=== PATIENT | female | born 1975 | race Asian ===

== ENCOUNTER 2024-03-26 10:02 | Inpatient (IN) ==
[2024-03-26] MEDS: NS 0.9% 1000 ml BAG 1,000 ML IV ONE (11:55)
[2024-03-26] MEDS: Ondansetron 4 mg VIAL 2 MG/ML 2 ml VIAL IV ONE (12:00)
[2024-03-26] MEDS: Acetaminophen IV 1 GM/100ML 1,000 MG/100 ML BAG IV ONE (12:00)
[2024-03-26 12:50] LABS: ABS Monocytes 0.2 10^3/uL (0.0-0.9); ABS Neutrophils 2.2 10^3/uL (1.5-7.6); ABS Nucleated RBC 0.01 10^3/ul; Eosinophil % 0.4 %; Hematocrit 39.5 % (35-45); Hemoglobin 13.4 g/dL (11.5-14.3); Lymphocyte % 29.1 %; Mean Corpuscular Hemoglobin 31.8 pg (27-33); Mean Corpuscular Hgb Conc 33.8 g/dL (31-36); Mean Corpuscular Volume 93.9 fL (80-97); Mean Platelet Volume 8.9 fL (7.5-11.2); Nucleated Red Blood Cells % 0.2 %/100WBC (0.0-0.8); Platelet Count 157 10^3/uL (150-450); Red Blood Count 4.21 10^6/uL (3.63-4.92); White Blood Count 3.4 10^3/uL (3.8-11.8)
[2024-03-26 13:14] LABS: ALT 30 U/L (7-52); AST 19 U/L (13-39); Albumin/Globulin Ratio 1.4 (1-3); Alkaline Phosphatase 38 U/L (35-149); Anion Gap 6 mmol/L (2-16); Blood Urea Nitrogen 12 mg/dL (6-24); C Reactive Protein < 1.00 mg/L (<8.01); CO2 Carbon Dioxide 27 mmol/L (22-32); Calcium 9.2 mg/dL (8.6-10.3); Chloride 107 mmol/L (101-111); Creatinine, Serum 0.67 mg/dL (0.51-0.95); Globulin 2.8 g/dL (2-4); Glucose 87 mg/dL (70-100); Lipase < 10 U/L (11.0-82.0); Potassium 4.3 mmol/L (3.5-5.0); Sodium 140 mmol/L (135-145); Total Bilirubin 1.1 mg/dL (0.2-1.0); Total Protein 6.8 g/dL (6.4-8.9); eGFR CKD-EPI 107.7 (>60)
[2024-03-26] MEDS: Piperacillin/Tazobac 3.375 BAG 3.375 GM/100 ML BAG IV ONE (14:01)
[2024-03-26] MEDS: Iohexol 350 (CONTRAST) 500 ML MDV IV ONE (16:33)
[2024-03-26] MEDS ORDERED: Morphine 2 MG/ML SYRINGE IV PRN (20:04)
[2024-03-26] MEDS: ZOSYN 3.375 GM Q8H per EXTENDED INFUSION IV SCH (20:26)
[2024-03-26] MEDS ORDERED: Zosyn per Pharmacy NOTE FOLLOW UP SCH (21:00)
[2024-03-27] MEDS: NS 0.9% 1000 ml BAG 1,000 ML IV SCH (00:44)
[2024-03-27] MEDS: Lactated Ringers 1000 ml BAG 1,000 ML IV SCH (00:56)
[2024-03-27] MEDS: ZOSYN 3.375 GM Q8H per EXTENDED INFUSION IV SCH (04:27)
[2024-03-27] MEDS: Ondansetron 4 mg VIAL 2 MG/ML 2 ml VIAL IV PRN (11:31)
[2024-03-27] MEDS: Acetaminophen IV 1 GM/100ML 1,000 MG/100 ML BAG IV PRN (11:31)
[2024-03-27] MEDS ORDERED: Magnesium Hydroxide LIQ 30 ML UDC PO PRN ×2 (14:46→16:25)
[2024-03-27] MEDS ORDERED: Polyethylene Glycol 3350 17 GM PACKET PO PRN (16:25)
[2024-03-27] MEDS ORDERED: Senna TAB 8.6 mg TAB PO PRN (16:25)
[2024-03-27] MEDS: Lactulose 30 ml UDC PO ONE (16:48)
[2024-03-27] MEDS: Magnesium Hydroxide LIQ 30 ML UDC PO SCH (21:14)
[2024-03-27] MEDS: Senna TAB 8.6 mg TAB PO SCH (21:15)
[2024-03-28 06:38] LABS: ABS Lymphocytes 1.4 10^3/uL (1.0-4.8); ABS Monocytes 0.3 10^3/uL (0.0-0.9); ABS Neutrophils 2.8 10^3/uL (1.5-7.6); Hematocrit 38.7 % (35-45); Hemoglobin 13.3 g/dL (11.5-14.3); Lymphocyte % 30.6 %; Mean Corpuscular Hemoglobin 32.1 pg (27-33); Mean Corpuscular Hgb Conc 34.4 g/dL (31-36); Mean Corpuscular Volume 93.3 fL (80-97); Mean Platelet Volume 8.7 fL (7.5-11.2); Platelet Count 137 10^3/uL (150-450); Red Blood Count 4.15 10^6/uL (3.63-4.92); White Blood Count 4.6 10^3/uL (3.8-11.8)
[2024-03-28 07:19] LABS: Albumin 3.7 g/dL (3.2-5.2); Albumin/Globulin Ratio 1.4 (1-3); Calcium 8.6 mg/dL (8.6-10.3); Creatinine, Serum 0.69 mg/dL (0.51-0.95); Globulin 2.6 g/dL (2-4); Potassium 3.9 mmol/L (3.5-5.0); Total Bilirubin 1.2 mg/dL (0.2-1.0); Total Protein 6.3 g/dL (6.4-8.9)
[2024-03-28 16:50] VITALS: BP 101/73
== END 2024-03-28 16:30 | disposition home or self-care (01) | DRG 446 ==
LOC: EDHOLD 10:02 → ED 10:02 → SUATTDRO 20:00 → MED 03-27 00:08
PROVIDERS: ADMIT Student in an Organized Health Care Education/Training Program; ATTEND Internal Medicine